=== PATIENT | male | born 1970 | race Caucasian/White ===

== ENCOUNTER 2018-08-30 15:52 | Emergency (ER) | payer OTHER ==
[~2018-08-30] VITALS: Ht 182.9 cm; Wt 74.8 kg
[~2018-08-30 15:52] MED LIST: BACTRIM DS TAB1 EACH PO; KEFLEX500 MG PO; NOHOMEMEDICATIONS; NORCO 5-325 TA1 EAC1 PO; NORCO 5-325 TA1 EACH PO; TRAMADOL 50 MG50 MG PO
[2018-08-30 19:04] VITALS: BP 119/90
== END 2018-08-30 19:08 | disposition short-term general hospital (02) ==
LOC: M.ERS 15:52
DX: S12.300A Unspecified displaced fracture of fourth cervical vertebra, initial encounter for closed fracture (principal); F17.210 Nicotine dependence, cigarettes, uncomplicated; V29.9XXA Motorcycle rider (driver) (passenger) injured in unspecified traffic accident, initial encounter; Y93.89 Activity, other specified; Y92.89 Other specified places as the place of occurrence of the external cause; Y99.8 Other external cause status